=== PATIENT | female | born 1985 | race Caucasian/White ===

== ENCOUNTER 2018-11-24 20:16 | Inpatient (IN) | payer BC ==
[~2018-11-24] VITALS: Ht 157.5 cm; Wt 70.9 kg
[2018-11-24] MEDS ORDERED: LIDOCAINE 1% (MPF) 30 ML INJ INJ PRN (22:30)
[2018-11-24] MEDS ORDERED: AMPICILLIN 2 GM/NS (PMX) 100 ML IV ONE (22:30)
[2018-11-24] MEDS ORDERED: METHYLERGONOVINE 0.2 MG INJ IM PRN (22:30)
[2018-11-24] MEDS ORDERED: OXYTOCIN 30 UNITS/LR 500 ML IV PRN (22:30)
[2018-11-24] MEDS ORDERED: CARBOPROST 250 MCG INJ IM PRN (22:30)
[2018-11-24] MEDS ORDERED: IBUPROFEN 600 MG TAB PO PRN (22:30)
[2018-11-24] MEDS ORDERED: OXYTOCIN 30 UNITS/LR 500 ML IV SCH ×3 (22:30)
[2018-11-24] MEDS ORDERED: BUTORPHANOL 2 MG INJ IV PRN ×2 (22:30)
[2018-11-24] MEDS ORDERED: MISOPROSTOL 200 MCG TAB PR PRN (22:30)
[2018-11-24] MEDS: LACTATED RINGER'S 1,000 ML IV PRN ×2 (22:53→23:16)
[2018-11-24] MEDS ORDERED: FENTAnyl 2MCG/ML-ROPIV 0.2% 100 ML ONE (23:14)
[2018-11-24] MEDS ORDERED: NALOXONE (0.4 MG/ML) INJ IV PRN (23:30)
[2018-11-24] MEDS ORDERED: FENTAnyl 2MCG/ML-ROPIV 0.2% 100 ML BAG EPI SCH (23:30)
[2018-11-24] MEDS ORDERED: ONDANSETRON 4 MG INJ ONE (23:44)
[2018-11-25] MEDS: LACTATED RINGER'S 1,000 ML IV SCH ×3 (00:13→11:24)
[2018-11-25] MEDS ORDERED: FENTAnyl 2MCG/ML-ROPIV 0.2% 100 ML BAG EPI SCH (06:00)
[2018-11-25] MEDS: AMPICILLIN 1 GM/NS (PMX) 50 ML IV SCH ×2 (06:53→11:24)
[2018-11-25 12:46] VITALS: Ht 157.5 cm; Wt 70.9 kg
[2018-11-25] MEDS ORDERED: METHYLERGONOVINE 0.2 MG INJ IM PRN (13:00)
[2018-11-25] MEDS ORDERED: OXYTOCIN 30 UNITS/LR 500 ML IV PRN (13:00)
[2018-11-25] MEDS ORDERED: BENZOCAINE 20% 56 ML SPRAY TOP PRN (13:00)
[2018-11-25] MEDS ORDERED: MISOPROSTOL 200 MCG TAB PR PRN (13:00)
[2018-11-25] MEDS ORDERED: HYDROCODONE/APAP (5/325) TAB PO PRN (13:00)
[2018-11-25] MEDS ORDERED: CARBOPROST 250 MCG INJ IM PRN (13:00)
[2018-11-25 15:30] VITALS: BP 120/66; PULSE 81
[2018-11-25] MEDS: OXYTOCIN 30 UNITS/LR 500 ML IV SCH ×2 (15:30→23:00)
[2018-11-25] MEDS: LACTATED RINGER'S 1,000 ML IV* SCH ×2 (15:30→21:00)
[2018-11-25 16:45] VITALS: BP 122/68; PULSE 80
[2018-11-25] MEDS: IBUPROFEN 600 MG TAB PO SCH (17:08)
[2018-11-25] MEDS: LANOLIN HPA 1 PKT TOP PRN (17:09)
[2018-11-25 20:45] VITALS: BP 108/57; PULSE 77
[2018-11-25] MEDS: valACYclovir 500 MG TAB PO SCH (21:25)
[2018-11-26] MEDS: IBUPROFEN 600 MG TAB PO SCH ×5 (00:53→23:46)
[2018-11-26] MEDS: LACTATED RINGER'S 1,000 ML IV* SCH ×3 (01:41→21:00)
[2018-11-26 04:00] VITALS: BP 104/59; PULSE 79; RESP 17
[2018-11-26 08:00] VITALS: BP 128/62; PULSE 81; RESP 18
[2018-11-26 16:15] VITALS: BP 109/56; PULSE 76; RESP 16
[2018-11-26 20:00] VITALS: BP 110/62; PULSE 70; RESP 20
[2018-11-26] MEDS: valACYclovir 500 MG TAB PO SCH (21:31)
[2018-11-27 03:39] VITALS: BP 109/64; PULSE 78; RESP 20
[2018-11-27] MEDS: LACTATED RINGER'S 1,000 ML IV* SCH ×2 (05:00→13:00)
[2018-11-27] MEDS: IBUPROFEN 600 MG TAB PO SCH ×2 (05:23→12:12)
[2018-11-27 08:00] VITALS: BP 104/59; PULSE 82; RESP 16
[2018-11-27] MEDS ORDERED: DIPHTH/TET/ACEL PERTUSS (ADULT) 0.5 ML VIAL IM* ONE (09:00)
[2018-11-27] MEDS: LANOLIN HPA 1 PKT TOP PRN (15:39)
== END 2018-11-27 16:45 | disposition home or self-care (01) | DRG 807 ==
LOC: OBT 20:16 → L-D 20:17 → OBT 21:50 → L-D 21:50 → PP1 11-25 15:54
PROVIDERS: ADMIT Obstetrics & Gynecology; ATTEND Obstetrics & Gynecology
PROC: 10E0XZZ Delivery of Products of Conception, External Approach (ICD-10-PCS; principal; 2018-11-25)
PROC: 0HQ9XZZ Repair Perineum Skin, External Approach (ICD-10-PCS; 2018-11-25)
DX: O48.0 Post-term pregnancy (principal); O70.0 First degree perineal laceration during delivery; O69.81X0 Labor and delivery complicated by cord around neck, without compression, not applicable or unspecified; Z37.0 Single live birth; Z3A.40 40 weeks gestation of pregnancy
CPT/HCPCS: 62322; 81001; 85025; 85610; 85730; 86592; 86850; 86900; 86901; 87340; 90715; 99464; G0463; J0290; J2405; J2590; J3010; J7120